=== PATIENT | female | born 1975 | race American Indian/Alaskan Native ===

== ENCOUNTER 2019-09-04 16:32 | Emergency (ER) | payer SELFPAY ==
--- NOTE | 2019-09-04 17:01 | Emergency Department Report ---
Blank Doc - Documentation Documentation: 43-year-old female that presents with urinary symptoms and vaginal pain. This initial assessment/diagnostic orders/clinical plan/treatment(s) is/are subject to change based on patient's health status, clinical progression and re- assessment by fellow clinical providers in the ED. Further treatment and workup at subsequent clinical providers discretion. Patient/guardians urged not to elope from the ED as their condition may be serious if not clinically assessed and managed. Initial orders include: 1- Patient sent to [facility] for further evaluation and treatment 2- UA
[2019-09-04 17:03] VITALS: BP 98/63
[2019-09-04 17:27] LABS: Bacteria,Urine 1+ /HPF (Negative); Bilirubin,Urine NEG (Negative); Blood,Urine NEG (Negative); Color,Urine Yellow (Yellow); Mucus,Urine 3+ /HPF; Protein,Urine <15 mg/dL mg/dL (Negative)
[2019-09-04 17:29] LABS: HCG Qualitative,Urine Negative (Negative)
--- NOTE | 2019-09-04 21:55 | Emergency Department Report ---
ED Female HPI - General Chief complaint: Urogenital-Female Stated complaint: STOMACH PAIN Time Seen by Provider: 09/04/19 17:00 Source: patient Mode of arrival: Ambulatory Limitations: No Limitations - History of Present Illness Initial comments: patient is a 43-year-old female presents emergency room with complaints of vaginal pain that began 2-3 days ago. She states that she has swelling present to her right labia. She denies any vaginal discharge, odor, lesions, blisters. She states that she has also had dysuria for 2 days. She states that she has been with her current partner for 5 years and is not concerned for STDs. She has a past medical history of fibroids and tubal ligation. She denies any allergies medications. Her last menstrual cycle was 08/17/19. She denies any issues with her menstrual cycles. - Related Data Previous Rx's Medication Instructions Recorded Last Taken Type methOCARBAMOL [Robaxin] 500 mg PO BID #14 tab 11/12/13 Unknown Rx traMADoL [Ultram] 50 mg PO Q4HR PRN #14 tablet 11/12/13 Unknown Rx cephALEXin [Keflex] 500 mg PO BID 7 Days #14 cap 09/04/19 Unknown Rx metroNIDAZOLE [Flagyl] 500 mg PO BID 7 Days #14 tab 09/04/19 Unknown Rx Allergies Allergy/AdvReac Type Severity Reaction Status Date / Time No Known Allergies Allergy Verified 09/05/19 05:00 ED Review of Systems ROS: Stated complaint: STOMACH PAIN Other details as noted in HPI Comment: All other systems reviewed and negative ED Past Medical Hx - Past Medical History Previous Medical History?: No - Surgical History Additional Surgical History: tubes tied, fibroids removed - Social History Smoking Status: Current Every Day Smoker Substance Use Type: None - Medications Home Medications: Home Medications Medication Instructions Recorded Confirmed Last Taken Type methOCARBAMOL [Robaxin] 500 mg PO BID #14 tab 11/12/13 Unknown Rx traMADoL [Ultram] 50 mg PO Q4HR PRN #14 tablet 11/12/13 Unknown Rx cephALEXin [Keflex] 500 mg PO BID 7 Days #14 cap 09/04/19 Unknown Rx metroNIDAZOLE [Flagyl] 500 mg PO BID 7 Days #14 tab 09/04/19 Unknown Rx ED Physical Exam - General Limitations: No Limitations General appearance: alert, in no apparent distress - Head Head exam: Present: atraumatic, normocephalic - Eye Eye exam: Present: normal appearance - ENT ENT exam: Present: mucous membranes moist - Respiratory Respiratory exam: Present: normal lung sounds bilaterally. Absent: respiratory distress, wheezes, rales, rhonchi, stridor, chest wall tenderness, accessory muscle use, decreased breath sounds, prolonged expiratory - Cardiovascular Cardiovascular Exam: Present: regular rate, normal rhythm, normal heart sounds. Absent: systolic murmur, diastolic murmur, rubs, gallop - GI/Abdominal GI/Abdominal exam: Present: soft, normal bowel sounds. Absent: distended, tenderness, guarding, rebound, rigid - External exam: Present: swelling (small amount of edema present to the right labia, no induration, no fluctuance, no mass). 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 Absent: vaginal bleeding, foreign body, tissue, laceration Bi-manual exam: Present: normal bi-manual exam. Absent: cervical motion tendernes, adnexal tenderness, adnexal mass - Neurological Exam Neurological exam: Present: alert, oriented X3 - Psychiatric Psychiatric exam: Present: normal affect, normal mood - Skin Skin exam: Present: warm, dry, intact ED Course Vital Signs 09/04/19 17:00 Temperature 98.1 F Pulse Rate 83 Respiratory 16 Rate Blood Pressure 98/63 O2 Sat by Pulse 100 Oximetry ED Medical Decision Making - Medical Decision Making patient is a 43-year-old female presents emergency room with complaints of vaginal pain that began 2-3 days ago. She states that she has swelling present to her right labia. She denies any vaginal discharge, odor, lesions, blisters. She states that she has also had dysuria for 2 days. She states that she has been with her current partner for 5 years and is not concerned for STDs. She has a past medical history of fibroids and tubal ligation. She denies any allergies medications. Her last menstrual cycle was 08/17/19. She denies any issues with her menstrual cycles. vitals are stable. UA without evidence of UTI. urine preg is negative. wet prep shows BV and trichomonas. G/C swab sent. pt prophylactically treated for G/C with azithromycin and ceftriaxone. on exam: small amount of edema present to the right labia, no induration, no fluctuance, no mass, could be early bartholins cyst, will give pt abx and have her follow up with DIRECTOR OF QUANTITATIVE RESEARCH. pt given prescription for keflex and flagyl. advised pt kiet take medication as prescribed. Please do sitz baths twice a day. do not drink alcohol while taking the medication. Please go to medical records in one week with your drivers license for results of your tests were you have been treated for these today. Please have partner tested and treated as well. Avoid sexual intercourse for 10 days. Please go to the health department for full STD panel. Follow-up with a DIRECTOR OF QUANTITATIVE RESEARCH in the next 3-5 days. Return to the emergency room for any new or worsening symptoms. - Differential Diagnosis bartholins cyst, STD, UTI, vaginitis, yeast, lesion Critical care attestation.: If time is entered above; I have spent that time in minutes in the direct care of this critically ill patient, excluding procedure time. ED Disposition Clinical Impression: Trichomonas vaginalis infection, Bacterial vaginosis, Labial swelling Disposition: DC-01 TO HOME OR SELFCARE Is pt being admited?: No Does the pt Need Aspirin: No Condition: Stable Instructions: Bacterial Vaginosis (ED), Trichomoniasis (ED), Bartholin Cyst (ED), Sitz Bath (GEN) Additional Instructions: kiet take medication as prescribed. Please do sitz baths twice a day. do not drink alcohol while taking the medication. Please go to medical records in one week with your drivers license for results of your tests were you have been treated for these today. Please have partner tested and treated as well. Avoid sexual intercourse for 10 days. Please go to the health department for full STD panel. Follow-up with a DIRECTOR OF QUANTITATIVE RESEARCH in the next 3-5 days. Return to the emergency room for any new or worsening symptoms. Prescriptions: metroNIDAZOLE [Flagyl] 500 mg PO BID 7 Days #14 tab cephALEXin [Keflex] 500 mg PO BID 7 Days #14 cap Referrals: [facility] [Provider Group] - 3-5 Days [facility] [Provider Group] - 3-5 Days [facility] [Provider Group] - 3-5 Days [facility] [Outside] - 3-5 Days Forms: STI Treatment and Prevention Time of Disposition: 22:49 Print Language: MACANESE
[2019-09-04] MEDS ORDERED: AZITHROMYCIN 1 GM ORAL PWDR PACKET PO ONE (22:52)
[2019-09-04] MEDS ORDERED: LIDOCAINE-MPF (1%) 10 MG/1 ML VIAL 5 ML INFILTRATI ONE (22:52)
[2019-09-05] MEDS ORDERED: MORPHINE 2 MG/1 ML INJ ONE (05:01)
== END 2019-09-05 00:01 | disposition home or self-care (01) ==
LOC: ED 16:32
DX: A59.01 Trichomonal vulvovaginitis (principal); F17.200 Nicotine dependence, unspecified, uncomplicated; Z79.899 Other long term (current) drug therapy
CPT/HCPCS: 81001; 81025; 87210; 87591; 96372; 99284; J0696; J2270

== ENCOUNTER 2020-05-13 11:29 | Emergency (ER) | payer SELFPAY ==
[2020-05-13 13:13] VITALS: BP 107/74
--- NOTE | 2020-05-13 13:17 | Emergency Department Report ---
ED ENT HPI - General Chief complaint: Earache Stated complaint: EAR THROAT PAIN Time Seen by Provider: 05/13/20 13:11 Source: patient Mode of arrival: Ambulatory Limitations: No Limitations - History of Present Illness Initial comments: This is a 44-year-old female nontoxic well in appearance with no signs of distress presents to the ED with complaint of left earache. Patient denies any hearing loss. Denies any mastoid tenderness. Denies any fever, chills, headache, nausea, vomiting, chest pain or SOB. Denies any other complaints. Denies any allergies. MD complaint: ear pain -: Gradual Location: L ear Severity: mild Severity scale (0 -10): 8 Quality: aching Consistency: constant Improves with: none Worsens with: none Associated Symptoms: denies: fever, cough, gum swelling, toothache, pain with swallowing, sore throat, tinnitus, hearing loss, discharge from ear, rhinorrhea - Related Data Previous Rx's Medication Instructions Recorded Last Taken Type methOCARBAMOL [Robaxin] 500 mg PO BID #14 tab 11/12/13 Unknown Rx traMADoL [Ultram] 50 mg PO Q4HR PRN #14 tablet 11/12/13 Unknown Rx cephALEXin [Keflex] 500 mg PO BID 7 Days #14 cap 09/04/19 Unknown Rx metroNIDAZOLE [Flagyl] 500 mg PO BID 7 Days #14 tab 09/04/19 Unknown Rx Amoxicillin [Amoxicillin TAB] 875 mg PO BID #20 tablet 05/13/20 Unknown Rx Allergies Allergy/AdvReac Type Severity Reaction Status Date / Time No Known Allergies Allergy Verified 09/05/19 05:00 ED Dental HPI - General Chief complaint: Earache Stated complaint: EAR THROAT PAIN Time Seen by Provider: 05/13/20 13:11 Source: patient Mode of arrival: Ambulatory Limitations: No Limitations - Related Data Previous Rx's Medication Instructions Recorded Last Taken Type methOCARBAMOL [Robaxin] 500 mg PO BID #14 tab 11/12/13 Unknown Rx traMADoL [Ultram] 50 mg PO Q4HR PRN #14 tablet 11/12/13 Unknown Rx cephALEXin [Keflex] 500 mg PO BID 7 Days #14 cap 09/04/19 Unknown Rx metroNIDAZOLE [Flagyl] 500 mg PO BID 7 Days #14 tab 09/04/19 Unknown Rx Amoxicillin [Amoxicillin TAB] 875 mg PO BID #20 tablet 05/13/20 Unknown Rx Allergies Allergy/AdvReac Type Severity Reaction Status Date / Time No Known Allergies Allergy Verified 09/05/19 05:00 ED Review of Systems ROS: Stated complaint: EAR THROAT PAIN Other details as noted in HPI Constitutional: denies: chills, fever Eyes: denies: eye pain, eye discharge, vision change ENT: ear pain. denies: throat pain Respiratory: denies: cough, shortness of breath, wheezing Cardiovascular: denies: chest pain, palpitations Endocrine: no symptoms reported Gastrointestinal: denies: abdominal pain, nausea, diarrhea Genitourinary: denies: urgency, dysuria, discharge Musculoskeletal: denies: back pain, joint swelling, arthralgia Skin: denies: rash, lesions Neurological: denies: headache, weakness, paresthesias Psychiatric: denies: anxiety, depression Hematological/Lymphatic: denies: easy bleeding, easy bruising ED Past Medical Hx - Past Medical History Previous Medical History?: No - Surgical History Past Surgical History?: Yes Additional Surgical History: tubes tied, fibroids removed - Social History Smoking Status: Current Every Day Smoker Substance Use Type: None - Medications Home Medications: Home Medications Medication Instructions Recorded Confirmed Last Taken Type methOCARBAMOL [Robaxin] 500 mg PO BID #14 tab 11/12/13 Unknown Rx traMADoL [Ultram] 50 mg PO Q4HR PRN #14 tablet 11/12/13 Unknown Rx cephALEXin [Keflex] 500 mg PO BID 7 Days #14 cap 09/04/19 Unknown Rx metroNIDAZOLE [Flagyl] 500 mg PO BID 7 Days #14 tab 09/04/19 Unknown Rx Amoxicillin [Amoxicillin TAB] 875 mg PO BID #20 tablet 05/13/20 Unknown Rx ED Physical Exam - General Limitations: No Limitations General appearance: alert, in no apparent distress - Head Head exam: Present: atraumatic, normocephalic - Expanded ENT Exam Expanded Ear exam: Present: normal external inspection TM/Canal exam: Erythema: Left TM, Bulging: Left TM Mouth exam: Present: normal external inspection, tongue normal. Absent: drooling, trismus, muffled voice Teeth exam: Present: normal inspection Throat exam: Positive: normal inspection. Negative: tonsillar erythema, tonsillomegaly, tonsillar exudate, R peritonsillar mass, L peritonsillar mass - Neck Neck exam: Present: normal inspection, full ROM. Absent: tenderness, meningismus, lymphadenopathy - Extremities Exam Extremities exam: Present: full ROM - Back Exam Back exam: Present: full ROM - Neurological Exam Neurological exam: Present: alert, oriented X3, normal gait - Psychiatric Psychiatric exam: Present: normal affect, normal mood - Skin Skin exam: Present: warm, dry, intact, normal color. Absent: rash ED Course Vital Signs 05/13/20 13:12 Temperature 98.9 F Pulse Rate 83 Respiratory 16 Rate Blood Pressure 107/74 [Left] O2 Sat by Pulse 100 Oximetry - Reevaluation(s) Reevaluation #1: 05/13/20 13:14 Patient is speaking in full sentences with no signs of distress noted. ED Medical Decision Making - Medical Decision Making Patient was instructed to Follow-up with a dentist doctor in 3-5 days or if symptoms worsen and continue return to emergency room as soon as possible. At time of discharge, the patient does not seem toxic or ill in appearance. No acute signs of distress noted. Patient agrees to discharge treatment plan of care. No further questions noted by the patient. Critical care attestation.: If time is entered above; I have spent that time in minutes in the direct care of this critically ill patient, excluding procedure time. ED Disposition Clinical Impression: Otitis media Qualifiers: Otitis media type: unspecified Chronicity: acute Qualified Code(s): H66.90 - Otitis media, unspecified, unspecified ear Disposition: DC-01 TO HOME OR SELFCARE Is pt being admited?: No Does the pt Need Aspirin: No Condition: Stable Instructions: Otitis Media (ED) Additional Instructions: Follow-up with a primary care doctor in 3-5 days or if symptoms worsen and continue return to emergency room as soon as possible. Prescriptions: Amoxicillin [Amoxicillin TAB] 875 mg PO BID #20 tablet Referrals: PRIMARY [facility] [Referring] - 3-5 Days EROS BONE MD [Staff Physician] - 3-5 Days Forms: Work/School Release Form(ED)
== END 2020-05-13 13:32 | disposition home or self-care (01) ==
LOC: ED 11:29
DX: H66.92 Otitis media, unspecified, left ear (principal); F17.200 Nicotine dependence, unspecified, uncomplicated; Z79.899 Other long term (current) drug therapy; Z98.890 Other specified postprocedural states
CPT/HCPCS: 99282